=== PATIENT | male | born 1955 | race Caucasian/White ===

== ENCOUNTER 2017-02-11 07:46 | Day surgery (SDC) | payer BC ==
[2017-02-10 08:32] VITALS: BMI 31.1
[~2017-02-11 07:46] MED LIST: LACTATED RINGERS 1,000 ML IV SCH
[2017-02-11 07:59] VITALS: TEMP 97.3
[2017-02-11] MEDS ORDERED: LIDOCAINE 1% 20 ML VIAL (10MG/ML) FOR IV START INTRADERMA ONE (08:07)
[2017-02-11] MEDS ORDERED: PROPOFOL 10 MG/ML 20 ML VIAL IV ONE (09:14)
[2017-02-11] MEDS ORDERED: LIDOCAINE 1% INJ 10MG/ML (20 ML MDV) ONE (09:14)
--- NOTE | 2017-02-11 09:48 | P.PCN ---
Date of Procedure: 02/11/17 Procedure(s) Performed: Procedure: Colonoscopy and polypectomy. Preoperative diagnosis: Screening for neoplasia. Patient has history of polyps. Postoperative diagnosis: 1. Diverticulosis with no evidence of acute diverticulitis or strictures. 2. Two polyps snared, in the right colon and around the hepatic flexure, but no large polyps or cancer. 3. Low-grade internal hemorrhoids not bleeding at the time of this exam. Preparation: HalfLytely prep. Sedation: Was provided by anesthesia. Brief clinical history: The patient is a 62-year-old male who is scheduled for this evaluation for screening for neoplasia. He has history of polyps. His last examination was in January 2012. He has no abdominal complaints, bleeding or anemia. Procedure: With the patient on his left lateral decubitus position and after informed consent and adequate sedation, the perianal area was inspected and it did not show any fissures or fistulas. There were no masses felt on digital rectal examination. The Olympus CFQ 160L video colonoscope was then inserted in the rectum in the usual fashion and advanced to the cecum. There were multiple diverticular orifices seen scattered in the sigmoid and a rare small orifice seen on the right side but there was no evidence of acute diverticulitis or strictures. There was a small polyp around the hepatic flexure which was snared and retrieved by suction and there was a small to medium-sized polyp in the proximal right colon which was snared and retrieved by suction but there were no large polyps or cancer. The mucosa appeared healthy. I retroflexed endoscope in the rectum before the endoscope was withdrawn. Low-grade internal hemorrhoids were noted but there was no bleeding. The patient tolerated the procedure well. Plan: The patient was reassured. Discussed dietary measures and local care for hemorrhoids. He will follow up with you as planned and I recommended repeat exam in 5 years.
[2017-02-11 09:54] VITALS: RESP 18
[2017-02-11 10:47] VITALS: BP 161/99; PULSE 67
== END 2017-02-11 10:51 | disposition home or self-care (01) ==
LOC: ORWHC2ENDO 07:46
DX: Z12.11 Encounter for screening for malignant neoplasm of colon (principal); Z86.010 Personal history of colon polyps; D12.3 Benign neoplasm of transverse colon; D12.2 Benign neoplasm of ascending colon; K57.30 Diverticulosis of large intestine without perforation or abscess without bleeding; K64.8 Other hemorrhoids
CPT/HCPCS: 88305; 45385; J2001; J2704

== ENCOUNTER 2017-04-17 10:56 | Emergency (ER) | payer BC, OTHER ==
[2017-04-17 11:10] VITALS: RESP 20
--- NOTE | 2017-04-17 11:48 | ED ---
Trauma HPI - General Chief Complaint: Extremity Injury, Upper Stated Complaint: LEFT ARM INJURY Source: patient Mode of arrival: ambulatory Limitations: no limitations - History of Present Illness Initial Comments: 62-year-old male presenting for evaluation of trauma to his left arm. He states that he was helping drop a tree and when the branch came down and hit him on the side of the head, left arm, and left forearm. He states that there is no loss of consciousness, he takes no anticoagulants, and he was wearing a helmet. He was alert and oriented throughout the entire event. He has an abrasion to his left upper lateral arm as well as the dorsal surface of his forearm. There is swelling to the distal midshaft of the dorsal aspect of the forearm prompting him to come to the ED for further evaluation. He states he has full range of motion throughout the arm, no decreased sensation or motor function, and just wants to make sure there isn't a hairline fracture. His tetanus is up-to-date as of last year. - Related Data Home Medications Medication Instructions Recorded Confirmed Multivitamins, Thera [Multivitamin] 1 tab PO DAILY 02/10/17 04/17/17 Nature-Thyroid (Unknown Dose) 1 tab PO DAILY 04/17/17 04/17/17 Previous Rx's Medication Instructions Recorded Diazepam [Valium] 5 mg PO BID #3 tab 04/17/17 HYDROcodone/APAP 5-325MG [[place] 1 - 2 tab PO Q6HR PRN #10 tab 04/17/17 5-325] Allergies Allergy/AdvReac Type Severity Reaction Status Date / Time No Known Allergies Allergy Verified 02/10/17 08:15 Review of Systems ROS Statement: Those systems with pertinent positive or pertinent negative responses have been documented in the HPI. ROS Other: All systems not noted in ROS Statement are negative. Constitutional: Denies: fever, chills, weakness Eyes: Denies: eye pain, eye discharge ENT: Denies: ear pain, throat pain Respiratory: Denies: cough, dyspnea, wheezes Cardiovascular: Denies: chest pain, palpitations Endocrine: Denies: fatigue, polydipsia, polyuria Gastrointestinal: Denies: abdominal pain, nausea, vomiting Genitourinary: Denies: urgency, dysuria Musculoskeletal: Denies: back pain, arthralgia, myalgia Skin: Reports: lesions (Abrasion). Denies: rash Neurological: Denies: headache, weakness Psychiatric: Denies: anxiety, depression Hematological/Lymphatic: Denies: easy bleeding, easy bruising Past Medical History Past Medical History: No Reported History Additional Past Medical History / Comment(s): hx polyp, diverticuli History of Any Multi-Drug Resistant Organisms: None Reported Past Surgical History: Adenoidectomy, Appendectomy, Hernia Repair, Orthopedic Surgery, Tonsillectomy Additional Past Surgical History / Comment(s): arthroscopy lt knee Past Anesthesia/Blood Transfusion Reactions: No Reported Reaction Past Psychological History: No Psychological Hx Reported Smoking Status: Never smoker Past Alcohol Use History: None Reported Past Drug Use History: None Reported - Past Family History Mother Family Medical History: No Reported History General Exam Limitations: no limitations General appearance: alert, in no apparent distress Head exam: Present: atraumatic, normocephalic, normal inspection Eye exam: Present: normal appearance, PERRL, EOMI. Absent: scleral icterus, conjunctival injection, periorbital swelling ENT exam: Present: normal exam, mucous membranes moist Neck exam: Present: normal inspection, tenderness (Right paraspinal tenderness) . Absent: meningismus, lymphadenopathy Respiratory exam: Present: normal lung sounds bilaterally. Absent: respiratory distress, wheezes, rales, rhonchi, stridor Cardiovascular Exam: Present: regular rate, normal rhythm, normal heart sounds. Absent: systolic murmur, diastolic murmur, rubs, gallop, clicks GI/Abdominal exam: Present: soft, normal bowel sounds. Absent: distended, tenderness, guarding, rebound, rigid Rectal exam: Present: deferred Extremities exam: Present: full ROM, normal capillary refill, other (Swelling to the dorsal surface of the left distal forearm). Absent: tenderness, pedal edema, joint swelling, calf tenderness Back exam: Present: normal inspection Neurological exam: Present: alert, oriented X3, CN II-XII intact Psychiatric exam: Present: normal affect, normal mood Skin exam: Present: warm, dry, normal color, abrasion (To the dorsal surface of the left forearm and the lateral surface of the left upper arm). Absent: rash Course Vital Signs 04/17/17 04/17/17 11:04 13:35 Temperature 98.2 F 97.5 F L Pulse Rate 88 74 Respiratory 20 20 Rate Blood Pressure 148/84 128/84 O2 Sat by Pulse 97 99 Oximetry Medical Decision Making - Medical Decision Making 8-year-old male presenting for evaluation of trauma to the left arm. He states the tree was being dropped and it brushed along the side of him. There are abrasions noted to the left arm and some swelling to the distal midshaft of the forearm. X-rays of both the forearm and the humerus were negative for acute osseous abnormalities. Abrasions were evaluated and were clean and were read bandaged. Tetanus status was up-to-date per the patient as of last year. He was informed of all results and through shared decision making it was determined that he be discharged with instructions to follow-up with his primary care physician but to return to this facility if his symptoms should worsen or persist. The patient acknowledged an understanding of this information and agreed with this plan of care. Disposition Clinical Impression: Soft tissue injury of forearm, Abrasion Disposition: HOME SELF-CARE Condition: Stable Instructions: Abrasion (ED) Additional Instructions: Please use medication as discussed. Please follow up with family doctor if symptoms have not improved over the next two days. Please return to the emergency room if your symptoms increase or worsen or for any other concerns. Prescriptions: Diazepam [Valium] 5 mg PO BID #3 tab HYDROcodone/APAP 5-325MG [[place] 5-325] 1 - 2 tab PO Q6HR PRN #10 tab PRN Reason: Analgesia Referrals: Nimesh Jenkins DO [Primary Care Provider] - 1-2 days Time of Disposition: 13:02
--- NOTE | 2017-04-17 12:49 | XR ---
EXAMINATION TYPE: 2 views left humerus. 2 views left forearm. DATE OF EXAM: 04/17/2017 12:42 PM COMPARISON: NONE HISTORY: 62-year-old male with pain after tree branch fell on arm. FINDINGS: Humerus: No evidence for acute fracture. [id number] degenerative change at the AC joint. Forearm: Limited assessment for elbow joint effusion due to obliquity on the lateral view. The elbow articulat ion appears grossly intact. No acute fracture the radius or ulna. Wrist articulation appears grossly intact. IMPRESSION: Left humerus and forearm without acute osseous abnormality seen.
[2017-04-17 13:40] VITALS: BP 128/84; PULSE 74; TEMP 97.5
== END 2017-04-17 13:44 | disposition home or self-care (01) ==
LOC: EC 10:56
DX: S50.812A Abrasion of left forearm, initial encounter (principal); S40.812A Abrasion of left upper arm, initial encounter; W20.8XXA Other cause of strike by thrown, projected or falling object, initial encounter; Z79.899 Other long term (current) drug therapy; Y93.89 Activity, other specified
CPT/HCPCS: 99283

== ENCOUNTER → 2017-10-30 | Outpatient (CLI) | payer BC ==
--- NOTE | 2017-10-30 12:05 | US ---
EXAMINATION TYPE: US carotid duplex BILAT DATE OF EXAM: 10/30/2017 COMPARISON: NONE CLINICAL HISTORY: R07.89 atypical chest pain. no h/o stroke, htn EXAM MEASUREMENTS: RIGHT: Peak Systolic Velocity (PSV) cm/sec ----- Right CCA: 106.9 ----- Right ICA: 77.3 ----- Right ECA: 101.7 ICA/CCA ratio: 0.7 RIGHT: End Diastole cm/sec ----- Right CCA: 21.0 ----- Right ICA: 27.6 ----- Right ECA: 19.1 LEFT: Peak Systolic Velocity (PSV) cm/sec ----- Left CCA: 133.6 ----- Left ICA: 68.7 ----- Left ECA: 94.3 ICA/CCA ratio: 0.5 LEFT: End Diastole cm/sec ----- Left CCA: 26.9 ----- Left ICA: 26.8 ----- Left ECA: 19.4 VERTEBRALS (direction of flow): Right Vertebral: Antegrade Left Vertebral: Antegrade Rhythm: Normal Mild homogeneous plaque seen, no stenosis Grayscale, color Doppler, spectral Doppler imaging performed of the carotid arteries. IMPRESSION: No hemodynamic significant stenosis of the proximal internal carotid arteries bilaterall y, indirect measurement of carotid stenosis
--- NOTE | 2017-10-30 12:51 | ECHOF ---
Referral Reason:R07.89 atypical chest pain MEASUREMENTS -------- HEIGHT: 182.9 cm WEIGHT: 104.3 kg BP: 164/91 RVIDd: 3.2 cm (< 3.3) IVSd: 1.0 cm (0.6 - 1.1) LVIDd: 4.8 cm (3.9 - 5.3) LVPWd: 1.1 cm (0.6 - 1.1) IVSs: 1.5 cm LVIDs: 3.1 cm LVPWs: 1.8 cm LA Diam: 3.8 cm (2.7 - 3.8) LAESV Index (A-L): 40.92 ml/m Ao Diam: 3.3 cm (2.0 - 3.7) AV Cusp: 1.3 cm (1.5 - 2.6) MV EXCURSION: 24.729 mm (> 18.000) MV EF SLOPE: 141 mm/s (70 - 150) EPSS: 1.1 cm MV E Dillon: 0.97 m/s MV DecT: 245 ms MV A Dillon: 1.24 m/s MV E/A Ratio: 0.78 AV maxP.18 mmHg AV meanP.70 mmHg RAP: 5.00 mmHg RVSP: 30.01 mmHg FINDINGS -------- Sinus rhythm. This was a technically good study. The left ventricular size is normal. There is borderline concentric left ventricular hypertrophy. Overall left ventricular systolic function is normal with, an EF between 60 - 65 %. The right ventricle is normal in size. LA is severely dilated >40 ml/m2 The right atrium is normal in size. Mobile interatrial septum. There is mild to moderate aortic valve sclerosis. Peak/mean gradient across the Aortic Valve is 15. 18mmHg / 7.70mmHg. The mitral valve leaflets are mildly thickened. Mild mitral annular calcification present. There is trace to mild mitral regurgitation. Mild tricuspid regurgitation present. Right ventricular systolic pressure is normal at < 35 mmHg. Trace/mild (physiologic) pulmonic regurgitation. The aortic root size is normal. Normal inferior vena cava with normal inspiratory collapse consistent with estimated right atrial pre ssure of 5 mmHg. There is no pericardial effusion. CONCLUSIONS -------- 1. Sinus rhythm. 2. This was a technically good study. 3. The left ventricular size is normal. 4. There is borderline concentric left ventricular hypertrophy. 5. Overall left ventricular systolic function is normal with, an EF between 60 - 65 %. 6. The right ventricle is normal in size. 7. LA is severely dilated >40 ml/m2 8. The right atrium is normal in size. 9. Mobile interatrial septum. 10. There is mild to moderate aortic valve sclerosis. 11. Peak/mean gradient across the Aortic Valve is 15.18mmHg / 7.70mmHg. 12. The mitral valve leaflets are mildly thickened. 13. Mild mitral annular calcification present. 14. There is trace to mild mitral regurgitation. 15. Mild tricuspid regurgitation present. 16. Right ventricular systolic pressure is normal at < 35 mmHg. 17. Trace/mild (physiologic) pulmonic regurgitation. 18. The aortic root size is normal. 19. Normal inferior vena cava with normal inspiratory collapse consistent with estimated right atrial pressure of 5 mmHg. 20. There is no pericardial effusion. HEAD SETTER: Deb Willams RDCS
== END | disposition home or self-care (01) ==
LOC: RADUSMAIN 09:18
PROVIDERS: ATTEND Family Medicine
DX: I08.1 Rheumatic disorders of both mitral and tricuspid valves (principal)
CPT/HCPCS: 93306; 93880

== ENCOUNTER → 2019-01-13 | Outpatient (CLI) | payer OTHER ==
--- NOTE | 2019-01-13 13:11 | XR ---
EXAMINATION TYPE: XR chest 2V DATE OF EXAM: 01/13/2019 COMPARISON: NONE HISTORY: Shortness of breath TECHNIQUE: Frontal and lateral views of the chest are obtained. FINDINGS: Scattered senescent parenchymal changes noted. Hyperinflation compatible with COPD. No evidence for infiltrate. No evidence for atelectasis. Heart size is stable. Mediastinal structures are stable and grossly unremarkable. No evidence for hilar prominence. Degenerative changes dorsal spine. IMPRESSION: 1. No evidence for acute pulmonary disease.
--- NOTE | 2019-01-13 13:12 | XR ---
Right RIBS HISTORY: Trauma and pain 4 views of the right RIBS No evident displaced rib fracture. No pneumothorax or pleural effusion. IMPRESSION: No acute fracture evident. Difficult fracture is suspected and bone scan may be of increa sed sensitivity.
--- NOTE | 2019-01-13 13:14 | XR ---
Lumbar spine HISTORY: Low back pain 3 views of the lumbar spine Lumbar vertebral bodies show preserved height and alignment. Bone mineralization is mildly reduced. S clerosis in the posterior elements is compatible with facet arthropathy. Minimal anterolisthesis grad e 1 L5-S1, difficult to exclude spondylolysis L5, chronic. There is associated loss of disc height. M ultilevel spondylosis is present. IMPRESSION: Spondylolisthesis, degenerative disc disease, facet arthropathy. Additional findings abohnanah coffman.
--- NOTE | 2019-01-13 13:15 | XR ---
Thoracic spine HISTORY: Back pain 3 views of the thoracic spine There is a spinal curvature. Thoracic vertebral bodies show preserved height and alignment. There is multilevel spondylosis and loss of disc height especially at the lower intervertebral levels. There i s a kyphosis. IMPRESSION: No acute fracture or subluxation. Degenerative disc disease, thoracic spondylosis. MRI ma y be of benefit.
== END ==
LOC: RADXRMAIN 12:27
PROVIDERS: ATTEND Emergency Medicine
DX: S20.221A Contusion of right back wall of thorax, initial encounter (principal); M43.16 Spondylolisthesis, lumbar region; M51.36 Other intervertebral disc degeneration, lumbar region; M46.96 Unspecified inflammatory spondylopathy, lumbar region; M47.816 Spondylosis without myelopathy or radiculopathy, lumbar region; M51.34 Other intervertebral disc degeneration, thoracic region; M47.814 Spondylosis without myelopathy or radiculopathy, thoracic region
CPT/HCPCS: 71046; 72072; 72100

== ENCOUNTER → 2019-08-24 | Outpatient (CLI) | payer BC ==
[2019-08-25 11:32] LABS: Immunoglobulin M 55.2 mg/dL (40.0-280.0)
== END | disposition home or self-care (01) ==
LOC: CPPFTMAIN 13:28
PROVIDERS: ATTEND Internal Medicine Critical Care Medicine
DX: J45.909 Unspecified asthma, uncomplicated (principal); J18.9 Pneumonia, unspecified organism
CPT/HCPCS: 82784; 82785; 94060; 94726; 94729

== ENCOUNTER → 2020-10-02 | Outpatient (CLI) | payer BC ==
--- NOTE | 2020-10-02 13:37 | MR ---
EXAMINATION TYPE: MR knee RT wo con DATE OF EXAM: 10/02/2020 COMPARISON: None. HISTORY: Right knee pain and swelling x 2 months. TECHNIQUE: Multiplanar, multisequence imaging of the right knee is performed without IV contrast. FINDINGS: MEDIAL MENISCUS: Triangular shaped increased signal posterior horn does not extend to articular surfa ce. LATERAL MENISCUS: There is triangular shaped increased signal anterior and posterior horns. Adjacent small para meniscal cyst felt present sagittal image 26 anteriorly and posteriorly. CRUCIATE LIGAMENTS: The anterior and posterior cruciate ligaments are intact and unremarkable. COLLATERAL LIGAMENTS: The medial collateral ligament and lateral collateral ligament complex are inta ct and unremarkable. EXTENSOR MECHANISM: Visualized quadriceps and patellar tendons are intact. EFFUSION: Small to moderate size suprapatellar joint effusion. POPLITEAL CYST: Large multiseptated leaking popliteal/arguello cyst measured over 11 cm sagittal image 12. TRICOMPARTMENT SPACES: Mild to moderate tricompartment joint space loss without significant spurring CARTILAGE: Tricompartmental articular cartilage fairly well maintained. BONE MARROW SIGNAL: Small focus of heterogeneous increased T2 signal central posterior tibial plateau sagittal image 20 involving the lateral tibial condyle near PCL and accessory ligament insertion. OTHER: No additional significant abnormality is appreciated. IMPRESSION: 1. At least intrasubstance but probable full thickness tears anterior and posterior horn of lateral m eniscus with adjacent para meniscal cyst formation. 2. Large leaking popliteal cyst. 3. Small to moderate-sized suprapatellar joint effusion. 4. Mild to moderate tricompartment degenerative changes. 5. Intrasubstance tear posterior horn medial meniscus.
== END | disposition home or self-care (01) ==
LOC: RADMRIMAIN 12:43
PROVIDERS: ATTEND Orthopaedic Surgery
DX: M71.21 Synovial cyst of popliteal space [Baker], right knee (principal); M17.11 Unilateral primary osteoarthritis, right knee; S83.241A Other tear of medial meniscus, current injury, right knee, initial encounter

== ENCOUNTER → 2020-11-13 | Outpatient (CLI) | payer BC | END | disposition home or self-care (01) | LOC: LABWHC1 16:15 | PROVIDERS: ATTEND Family Medicine | DX: Z03.818 Encounter for observation for suspected exposure to other biological agents ruled out (principal) | CPT/HCPCS: U0003; C9803 ==

== ENCOUNTER 2023-08-29 09:25 | Day surgery (SDC) | payer MEDICARE ==
[2023-08-25 16:04] VITALS: BMI 30.3
[~2023-08-29 09:25] MED LIST changes: +LIDOCAINE 1% (10MG/ML) FOR IV START INTRADERMA PRN; +ONDANSETRON 4 MG/2 ML VIAL IVP PRN
[2023-08-29 10:23] VITALS: TEMP 98
[2023-08-29] MEDS ORDERED: LIDOCAINE 2% INJ 20 MG/ML (2 ML VIAL) ONE (10:31)
[2023-08-29] MEDS ORDERED: PROPOFOL 10 MG/ML 20 ML VIAL IV ONE (10:31)
--- NOTE | 2023-08-29 10:58 | P.PCN ---
Date of Procedure: 08/29/23 Procedure(s) Performed: BRIEF HISTORY: Patient is a 68-year-old pleasant white male scheduled for an elective colonoscopy as a part of evaluation of prior history of colon polyps. Last colonoscopy was 7 years ago. PROCEDURE PERFORMED: Colonoscopy. PREOPERATIVE DIAGNOSIS: History of colon polyps. IV sedation per Anesthesia. PROCEDURE: After informed consent was obtained, the patient, was brought into the endoscopy unit. IV sedation was administered by Anesthesia under continuous monitoring. Digital rectal examination was normal. Initially the Olympus CF-160 flexible video colonoscope was then inserted in the rectum, gradually advanced into the cecum without any difficulty. Careful examination was performed as the scope was gradually being withdrawn. Ileocecal valve and the appendiceal orifice were visualized and appeared normal. Prep was good.. Mucosa of the cecum, ascending colon, transverse colon, descending colon, sigmoid colon, and rectum appeared normal. Scattered left sided diverticulosis. Retroflexion was performed in the rectum and small internal hemorrhoids were seen. The patient tolerated the procedure well. IMPRESSION: Normal-appearing colon from rectum to cecum with no evidence of colorectal neoplasia. Scattered diffuse diverticulosis Small internal hemorrhoids RECOMMENDATIONS: Findings of this examination were discussed with the patient well as his family. He was advised to have a repeat screening colonoscopy in 10 years..
[2023-08-29 11:10] VITALS: PULSE 86
[2023-08-29 11:28] VITALS: BP 162/85; RESP 18
== END 2023-08-29 11:35 | disposition home or self-care (01) ==
LOC: ORWHC2ENDO 09:25
PROVIDERS: ATTEND Internal Medicine Gastroenterology
DX: Z12.11 Encounter for screening for malignant neoplasm of colon (principal); K64.8 Other hemorrhoids; K57.32 Diverticulitis of large intestine without perforation or abscess without bleeding; Z86.010 Personal history of colon polyps; E78.5 Hyperlipidemia, unspecified; E03.9 Hypothyroidism, unspecified; Z98.890 Other specified postprocedural states
CPT/HCPCS: G0105; J2704; J2001

== ENCOUNTER 2024-01-23 17:32 | Emergency (ER) | payer MEDICARE ==
--- NOTE | 2024-01-23 17:51 | ED ---
Male Urogenital HPI - General Source: patient, family, RN notes reviewed <Ana Conner - Last Filed: 01/23/24 17:50> <Mynor Guerrier - Last Filed: 01/23/24 22:43> - General Stated complaint: Blood in Urine Time Seen by Provider: 01/23/24 17:50 - History of Present Illness Initial comments: Patient is a 69-year-old male presented to ER with chief complaint of hematuria. He states he first noticed blood in his urine 2 days ago. He also endorsed dysuria. States this afternoon he saw blood clots in his urine which brought him to the ER. Patient takes baby aspirin daily. Denies any abdominal pain. (Ana Conner) 69-year-old male presenting to the ED with a chief complaint of hematuria. Notes he is on baby aspirin. Denies other thinner use. States 2 days ago started to notice some hematuria. Yesterday states that this was resolved however today states that he has had intermittent hematuria again and also notes some small clots with this prompted presentation to the ED for further evaluation. Reports that he is still able to urinate normally. Denies difficulty urinating, dysuria, flank pain, abdominal pain, fever, chills. No chest pain or shortness of breath. No other complaints at this time. (Mynor Guerrier) - Related Data Home Medications Medication Instructions Recorded Confirmed Multivitamins, Thera [Multivitamin] 1 tab PO DAILY 02/10/17 08/29/23 Atorvastatin [Lipitor] 10 mg PO DAILY 08/25/23 08/29/23 Thyroid,Pork [Spar Finisher Thyroid] 60 mg PO DAILY 08/25/23 08/29/23 Allergies Allergy/AdvReac Type Severity Reaction Status Date / Time adhesive tape Allergy Rash/Hives Verified 01/23/24 18:07 Review of Systems ROS Other: All systems not noted in ROS Statement are negative. <Ana Conner - Last Filed: 01/23/24 17:50> ROS Other: All systems not noted in ROS Statement are negative. <Mynor Guerrier - Last Filed: 01/23/24 22:43> ROS Statement: Those systems with pertinent positive or pertinent negative responses have been documented in the HPI. Past Medical History Past Medical History: Thyroid Disorder Additional Past Medical History / Comment(s): hx polyp, diverticuli heart murmur History of Any Multi-Drug Resistant Organisms: None Reported Past Surgical History: Adenoidectomy, Appendectomy, Hernia Repair, Orthopedic Surgery, Tonsillectomy Additional Past Surgical History / Comment(s): arthroscopy lt knee, bilateral inguinal cataract left eye removed Past Anesthesia/Blood Transfusion Reactions: No Reported Reaction Additional Past Anesthesia/Blood Transfusion Reaction / Comment(s): no blood transfusion Smoking Status: Never smoker - Past Family History Mother Family Medical History: No Reported History <Ana Conner - Last Filed: 01/23/24 17:50> General Exam <Ana Conner - Last Filed: 01/23/24 17:50> General appearance: alert, in no apparent distress Eye exam: Present: normal appearance Neck exam: Present: normal inspection Respiratory exam: Present: normal lung sounds bilaterally Cardiovascular Exam: Present: regular rate, normal rhythm GI/Abdominal exam: Present: soft (No tenderness to palpation. No rebound guarding or rigidity. No CVA tenderness to percussion bilaterally.) Neurological exam: Present: alert, oriented X3 Skin exam: Present: warm, dry <Mynor Guerrier - Last Filed: 01/23/24 22:43> - General Exam Comments Initial Comments: Visual Physical Exam Vital signs reviewed General: Well-appearing, nontoxic, no acute distress. Head: Normocephalic, atraumatic Eyes: PERRLA, EOMI ENT: Airway patent Chest: Nonlabored breathing Skin: No visual rash, normal skin tone Neuro: Alert and oriented 3 Musculoskeletal: No gross abnormalities (Ana Conner) Course Vital Signs 01/23/24 01/23/24 18:05 19:25 Temperature 98.6 F 98.4 F Pulse Rate 89 85 Respiratory 18 20 Rate Blood Pressure 175/98 149/83 O2 Sat by Pulse 100 98 Oximetry Medical Decision Making <Ana Conner - Last Filed: 01/23/24 17:50> - Lab Data Result diagrams: 01/23/24 18:18 01/23/24 18:18 <Mynor Guerrier - Last Filed: 01/23/24 22:43> - Medical Decision Making I performed the quick note portion of this chart. Electronically signed by Ana Conner PA-C (Ana Conner) Was pt. sent in by a medical professional or institution ([facility]Y Lauren, FAMILY PRACTICE NURSE PRACTITIONER, urgent care, hospital, or residential...) When possible be specific @ -No Did you speak to anyone other than the patient for history (EMS, parent, family, police, friend...)? What history was obtained from this source @ -No Did you review nursing and triage notes (agree or disagree)? Why? @ -I reviewed and agree with nursing and triage notes Were old charts reviewed (outside hosp., previous admission, EMS record, old EKG, old radiological studies, urgent care reports/EKG's, residential records)? Report findings @ -No old charts were reviewed Differential Diagnosis (chest pain, altered mental status, abdominal pain women, abdominal pain men, vaginal bleeding, weakness, fever, dyspnea, syncope, headac he, dizziness, GI bleed, back pain, seizure, CVA, palpatations, mental health, musculoskeletal)? @ -Kidney stone, renal cancer, urinary tract infection. Does not meant to be an all inclusive list. EKG interpreted by me (3pts min.). @ -None X-rays interpreted by me (1pt min.). @ -None done CT interpreted by me (1pt min.). @ -None done U/S interpreted by me (1pt. min.). @ -Ultrasound interpreted me is significant for an indistinct hypoechoic possible lesion seen medially measuring 2.6 x 2.0 x 2.8 cm. No evidence of obstructive uropathy at this time. What testing was considered but not performed or refused? (CT, X-rays, U/S, labs)? Why? @ -None What meds were considered but not given or refused? Why? @ -None Did you discuss the management of the patient with other professionals (professionals i.e. [facility] Lauren, FAMILY PRACTICE NURSE PRACTITIONER, lab, RT, psych nurse, social sciences professor, heat treating bluer, teacher, community service patrol officer, keycase assembler)? Give summary @ -No Was smoking cessation discussed for >3mins.? @ -No Was critical care preformed (if so, how long)? @ -No Were there social determinants of health that impacted care today? How? (Homelessness, low income, unemployed, alcoholism, drug addiction, transportation, low edu. Level, literacy, decrease access to med. care, [place] [facility], rehab)? @ -No Was there de-escalation of care discussed even if they declined (Discuss DNR or withdrawal of care, Hospice)? DNR status @ -No What co-morbidities impacted this encounter? (DM, HTN, Smoking, COPD, CAD, Cancer, CVA, ARF, Chemo, Hep., AIDS, mental health diagnosis, sleep apnea, mo rbid obesity)? @ -None Was patient admitted / discharged? Hospital course, mention meds given and r oute, prescriptions, significant lab abnormalities, going to OR and other pertinent info. @ -Discharge 65-year-old male who is a non-smoker presenting to the ED with a chief complaint of hematuria. Patient states over the last 2 days has had some intermittent hematuria. No pains or difficulty urinating. No other complaints other than having intermittent hematuria at this time. Laboratory studies reviewed. CBC largely unremarkable. Chemistry panel largely unremarkable. Urine is remarkable for moderate blood, greater than 182 red blood cells however no significant evidence of infection at this time. Renal ultrasound does show possible lesion of the left kidney measuring 2.6 x 2.0 x 2.8 cm. Patient discharged home in stable condition with referral to see urology. Discussed return precautions with patient and family who verbalized agreement. Undiagnosed new problem with uncertain prognosis? @ -No Drug Therapy requiring intensive monitoring for toxicity (Heparin, Nitro, Insulin, Cardizem)? @ -No Were any procedures done? @ -No Diagnosis/symptom? @ -Hematuria, possible left renal mass Acute, or Chronic, or Acute on Chronic? @ -Acute Uncomplicated (without systemic symptoms) or Complicated (systemic symptoms)? @ -Uncomplicated Side effects of treatment? @ -No Exacerbation, Progression, or Severe Exacerbation? @ -No Poses a threat to life or bodily function? How? (Chest pain, [place], [place], pneumonia, PE, COPD, DKA, ARF, appy, cholecystitis, CVA, Diverticulitis, Homicidal, Suicidal, threat to staff... and all critical care pts) @ -No (Mynor Guerrier) - Lab Data Lab Results 01/23/24 01/23/24 01/23/24 Range/Units 18:00 18:18 18:18 WBC 6.1 (3.8-10.6) k/uL RBC 4.55 (4.30-5.90) m/uL Hgb 13.8 (13.0-17.5) gm/dL Hct 39.9 (39.0-53.0) % MCV 87.7 (80.0-100.0) fL MCH 30.4 (25.0-35.0) pg MCHC 34.6 (31.0-37.0) g/dL RDW 13.3 (11.5-15.5) % Plt Count 227 (150-450) k/uL MPV 7.6 Sodium 143 (137-145) mmol/L Potassium 3.9 (3.5-5.1) mmol/L Chloride 109 H (98-107) mmol/L Carbon Dioxide 26 (22-30) mmol/L Anion Gap 8 mmol/L BUN 13 (9-20) mg/dL Creatinine 0.72 (0.66-1.25) mg/dL Est GFR (CKD-EPI)AfAm >90 (>60 ml/min/1.73 sqM) Est GFR (CKD-EPI)NonAf >90 (>60 ml/min/1.73 sqM) Glucose 123 H (74-99) mg/dL Calcium 9.5 (8.4-10.2) mg/dL Total Bilirubin 0.5 (0.2-1.3) mg/dL AST 32 (17-59) U/L ALT 38 (4-49) U/L Alkaline Phosphatase 82 (38-126) U/L Total Protein 7.2 (6.3-8.2) g/dL Albumin 4.3 (3.5-5.0) g/dL Urine Color Light Red Urine Appearance Clear (Clear) Urine pH 6.5 (5.0-8.0) Ur Specific [facility] 1.013 (1.001-1.035) Urine Protein 1+ H (Negative) Urine Glucose (UA) Negative (Negative) Urine Ketones Negative (Negative) Urine Blood Moderate H (Negative) Urine Nitrite Negative (Negative) Urine Bilirubin Negative (Negative) Urine Urobilinogen <2.0 (<2.0) mg/dL Ur Leukocyte Esterase Trace H (Negative) Urine RBC >182 H (0-5) /hpf Urine WBC 2 (0-5) /hpf Amorphous Sediment Rare H (None) /hpf Disposition <Ana Conner - Last Filed: 01/23/24 17:50> Is patient prescribed a controlled substance at d/c from ED?: No Time of Disposition: 22:30 <Mynor Guerrier - Last Filed: 01/23/24 22:43> Clinical Impression: Hematuria Disposition: HOME SELF-CARE Condition: Good Instructions (If sedation given, give patient instructions): Hematuria (ED) Additional Instructions: Please return to the Emergency Department if symptoms worsen or any other concerns. Please follow-up with urology. Referrals: None,Stated [REFERRING] - 1-2 days Jarrod Winter MD [STAFF PHYSICIAN] - 1-2 days
[2024-01-23 18:15] LABS: Amorphous Sediment,Urine Rare /hpf; Appearance,Urine Clear (Clear); Bilirubin,Urine Negative (Negative); Blood,Urine Moderate (Negative); Color,Urine Light Red; Glucose,Urine (UA) Negative (Negative); Ketones,Urine Negative (Negative); Leukocyte Esterase,Urine Trace (Negative); Nitrite,Urine Negative (Negative); PH, Urine 6.5 (5.0-8.0); Protein,Urine 1+ (Negative); RBC,Urine >182 /hpf (0-5); Specific Gravity,Urine 1.013 (1.001-1.035); Urobilinogen,Urine <2.0 mg/dL (<2.0); WBC,Urine 2 /hpf (0-5)
[2024-01-23 18:57] LABS: HCT 39.9 % (39.0-53.0); HGB 13.8 gm/dL (13.0-17.5); MCH 30.4 pg (25.0-35.0); MCHC 34.6 g/dL (31.0-37.0); MCV 87.7 fL (80.0-100.0); Mean Platelet Volume 7.6; Platelet Count 227 k/uL (150-450); RBC 4.55 m/uL (4.30-5.90); RDW 13.3 % (11.5-15.5); WBC 6.1 k/uL (3.8-10.6)
[2024-01-23 19:15] LABS: ALT 38 U/L (4-49); AST 32 U/L (17-59); African American GFR (CKD) >90 (>60 ml/min/1.73 sqM); Albumin 4.3 g/dL (3.5-5.0); Alkaline Phosphatase 82 U/L (38-126); Anion Gap 8 mmol/L; Blood Urea Nitrogen 13 mg/dL (9-20); Calcium 9.5 mg/dL (8.4-10.2); Carbon Dioxide 26 mmol/L (22-30); Chloride 109 mmol/L (98-107); Glucose 123 mg/dL (74-99); Non-African American GFR(CKD) >90 (>60 ml/min/1.73 sqM); Potassium 3.9 mmol/L (3.5-5.1); Sodium 143 mmol/L (137-145); Total Bilirubin 0.5 mg/dL (0.2-1.3); Total Protein 7.2 g/dL (6.3-8.2)
--- NOTE | 2024-01-23 22:06 | US ---
EXAMINATION TYPE: US renals and bladder DATE OF EXAM: 01/23/2024 COMPARISON: US 2016 CLINICAL INDICATION: Male, 69 years old with history of hematuria; Intermittent hematuria that starte d 2 days ago. EXAM MEASUREMENTS: Right Kidney: 12.6 x 6.1 x 5.1 cm Left Kidney: 11.9 x 5.9 x 6.1 cm Right Kidney: No hydronephrosis or masses seen Left Kidney: *Indistinct hypoechoic possible lesion seen medially measurin.6 x 2.0 x 2.8 cm. Bladder: Appears anechoic. Slightly limited evaluation due to not fully distended. Bilateral Jets seen: No *Incidental finding- Multiple hyperechoic foci with posterior shadowing seen within the gallbladder, largest: 1.4 x 2.2 x 1.9 cm. IMPRESSION: 1. No evidence for obstructive uropathy. 2. Wheel Lacer And Truer reports possible lesion within the medial aspect of the left kidney, consider further evaluation with MRI renal mass protocol. 3. Cholelithiasis.
[2024-01-23 23:30] VITALS: BP 171/98; PULSE 75; RESP 18; TEMP 97
== END 2024-01-23 22:57 | disposition home or self-care (01) ==
LOC: EC 17:32
DX: R31.9 Hematuria, unspecified (principal); E07.9 Disorder of thyroid, unspecified; Z79.890 Hormone replacement therapy; Z91.09 Other allergy status, other than to drugs and biological substances
CPT/HCPCS: 36415; 76770; 80053; 81001; 85027; 99284

== ENCOUNTER → 2024-02-04 | Outpatient (CLI) | payer MEDICARE ==
[2024-02-04 16:02] LABS: African American GFR (CKD) >90 (>60 ml/min/1.73 sqM); Blood Urea Nitrogen 23 mg/dL (9-20); Non-African American GFR(CKD) >90 (>60 ml/min/1.73 sqM)
--- NOTE | 2024-02-05 10:33 | CT ---
EXAMINATION TYPE: CT urogram wo/w con DATE OF EXAM: 02/04/2024 COMPARISON: Ultrasound 01/23/2024 HISTORY: hematuria x [address] DLP: 4291 mGycm CONTRAST: Performed and without and with IV Contrast, patient injected with 100 cc mL of Isovue 300. CT Urography was performed with unenhanced followed by enhanced images of the kidneys, ureters and ur inary bladder. Delayed images were obtained. 3d reconstruction was perfromed at a separate work sta tion. FINDINGS: KIDNEYS/BLADDER: No hydronephrosis. No nephrolithiasis. No distinct renal mass. Urinary bladder gr ossly unremarkable. LUNG BASES-: No visible nodule. No infiltrate. LIVER/GB: Vague gallstone identified. No space occupying hepatic lesion. Biliary tree is of normal ca liber. PANCREAS: No inflammation. No distinct mass. SPLEEN: No splenic enlargement. No lesion seen. ADRENALS: No nodule. No thickening. BOWEL: Normal appendix. Normal bowel caliber. No inflammation. GENITAL ORGANS: No gross abnormality. LYMPH NODES: No greater than 1cm abdominal or pelvic lymph nodes are appreciated. AORTA: No significant abnormality. OSSEOUS STRUCTURES: No significant abnormality is seen. OTHER: No significant additional abnormality is seen. IMPRESSION: 1. No distinct renal mass. Urinary bladder grossly unremarkable.
== END | disposition home or self-care (01) ==
LOC: RADCTMAIN 15:08
PROVIDERS: ATTEND Urology
DX: R31.0 Gross hematuria (principal)
CPT/HCPCS: 82565; 84520; 74178; 36415; 74400; Q9967